=== PATIENT | male | born 1945 | race African-American/Black ===

== ENCOUNTER 2016-08-23 13:41 | Outpatient (RCR) | payer MEDICARE, OTHER ==
--- NOTE | 2016-08-23 22:15 | Hyperbaric Consultation ---
HYPERBARIC OXYGEN CONSULTATION REASON FOR EVALUATION: Diabetic sludge, compromised flap. HISTORY OF PRESENT ILLNESS: This is a 70-year-old male who had amputation for a necrotic toe. The patient underwent an amputation, thereafter appears to have a coffee-ground flap as well as Mittal grade 4 lesion. The patient now presents for hyperbaric oxygen therapy. The patient had been managed medically. Apparently, currently bone scan was done to evaluate for osteomyelitis, which was negative. The patient's care discussed and reviewed with the patient since he has failed medical management. 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 MEDICATIONS: Reviewed. ALLERGIES: Penicillin. SOCIAL HISTORY: Nonsmoker and nondrinker. He lives with roommates. FAMILY HISTORY: Noncontributory. PHYSICAL EXAMINATION: GENERAL: The patient is a well developed male, who is pleasant. VITAL SIGNS: Blood pressure 155/80, pulse 95, respirations 18, and saturation 98%. HEENT: Negative. Tympanic membranes are clear. Nasopharynx is clear. Oropharynx is clear. NECK: Supple. LUNGS: Clear to auscultation. No rhonchi. No wheezing. CARDIOVASCULAR: S1 and S2. Regular rate and rhythm. ABDOMEN: Soft. EXTREMITIES: Notable for mild edema. There is right fifth toe amputation with a large wound 5 x 3 x 1.4 cm. IMPRESSION: 1. Mittal grade 4 lesion, right foot. 2. Compromised flap, right foot. 3. Diabetes. 4. Hypertension. 5. End-stage renal disease status post renal transplant. RECOMMENDATION: The patient appears to be appropriate hyperbaric oxygen candidate and we recommend 30 treatments at 90-minute intervals and two atmospheres with ongoing wound care and reevaluation at that point for possible additional treatments if the wound is responding. The patient is made aware of the plan. He is agreeable. Side effects also discussed and at present, we would certainly recommend proceeding with hyperbaric oxygen as soon as possible to avoid further deterioration of the wound. Mukesh Hair M.D. DR: NANCY JOB#: [id number] CC: LUIS
== END 2016-09-07 | disposition home or self-care (01) ==
LOC: WCC 13:41
DX: L97.519 Non-pressure chronic ulcer of other part of right foot with unspecified severity (principal); E11.49 Type 2 diabetes mellitus with other diabetic neurological complication; G99.0 Autonomic neuropathy in diseases classified elsewhere; T86.821 Skin graft (allograft) (autograft) failure; Z89.421 Acquired absence of other right toe(s); Z88.0 Allergy status to penicillin; Z94.0 Kidney transplant status; I10 Essential (primary) hypertension; I12.0 Hypertensive chronic kidney disease with stage 5 chronic kidney disease or end stage renal disease; E11.22 Type 2 diabetes mellitus with diabetic chronic kidney disease; N18.6 End stage renal disease; G47.30 Sleep apnea, unspecified; Z79.01 Long term (current) use of anticoagulants
CPT/HCPCS: 82962; G0277; G0463

== ENCOUNTER → 2016-09-04 | Outpatient (CLI) | payer MEDICARE ==
[2016-09-04 09:46] LABS: ALBUMIN/GLOBULIN RATIO 0.9 (1.0-2.7); CALCIUM 10.2 mg/dL (8.6-10.2); CREATININE 2.1 mg/dL (0.7-1.2); CRP QUANT 6.4 mg/dL (< 0.5); GLOMERULAR FILTRATION RATE 38.2 mL/min (>60); POTASSIUM 4.4 mEQ/L (3.4-4.9)
[2016-09-04 09:52] LABS: BASOPHILS % (AUTO) 1.1 % (0.0-2.0); EOSINOPHILS % (AUTO) 2.7 % (0.0-3.0); LYMPHOCYTES % (AUTO) 23.2 % (20.0-45.0); MEAN CORPUSCULAR HGB CONC 30.7 G/DL (32.0-36.0); MEAN CORPUSCULAR VOLUME 91 FL (80-99); MEAN PLATELET VOLUME 6.2 FL (6.5-10.1); MONOCYTES % (AUTO) 9.9 % (1.0-10.0); NEUTROPHILS % (AUTO) 63.2 % (45.0-75.0); PLATELET COUNT 306 K/UL (150-450); RED BLOOD COUNT 3.83 M/UL (4.70-6.10); RED CELL DISTRIBUTION WIDTH 13.7 % (11.6-14.8); WHITE BLOOD COUNT 9.3 K/UL (4.8-10.8)
[2016-09-04 11:02] LABS: ERYTHROCYTE SEDIMENTATION RATE 104 MM/HR (0-20)
--- NOTE | 2016-09-04 11:02 | Diagnostic Imaging Report ---
Indications: Right foot and ankle pain Technique: 3 views right foot, 3 views right ankle Findings: Comparison: None Digital ray has been resected through the proximal diaphysis of the fifth metatarsal. Overlying soft tissues are mildly swollen. Wound VAC on overlying skin. No fracture, dislocation, lytic destruction, periosteal reaction, soft tissue gas, or other acute change identified. Scattered arterial mural calcifications are present. Small spurs emanate from the plantar and posterior aspects of calcaneus, anterior margin of the distal tibia, dorsal margin of the talus. No other chronic changes are demonstrated. IMPRESSION: Status post fifth digital ray amputation No other evidence of acute abnormality Multifocal hindfoot enthesophytes Arteriosclerosis
== END | disposition home or self-care (01) ==
LOC: RAD 09:09
DX: M25.571 Pain in right ankle and joints of right foot (principal); I70.90 Unspecified atherosclerosis; M86.9 Osteomyelitis, unspecified; M19.90 Unspecified osteoarthritis, unspecified site
CPT/HCPCS: 36415; 80053; 85025; 85651; 86140

== ENCOUNTER 2016-09-08 17:23 | Outpatient (RCR) | payer MEDICARE, OTHER | END 2016-10-08 | disposition home or self-care (01) | LOC: WCC 17:23 | DX: T86.821 Skin graft (allograft) (autograft) failure (principal); L97.519 Non-pressure chronic ulcer of other part of right foot with unspecified severity; E11.49 Type 2 diabetes mellitus with other diabetic neurological complication; G99.0 Autonomic neuropathy in diseases classified elsewhere; Z89.421 Acquired absence of other right toe(s); Z94.0 Kidney transplant status; I12.0 Hypertensive chronic kidney disease with stage 5 chronic kidney disease or end stage renal disease; E11.22 Type 2 diabetes mellitus with diabetic chronic kidney disease; N18.6 End stage renal disease; Z79.01 Long term (current) use of anticoagulants; Z79.52 Long term (current) use of systemic steroids; Z79.4 Long term (current) use of insulin; Z88.0 Allergy status to penicillin; Z88.8 Allergy status to other drugs, medicaments and biological substances | CPT/HCPCS: 82962; G0277; G0463 ==

== ENCOUNTER 2016-10-09 09:34 | Outpatient (RCR) | payer MEDICARE, OTHER | END 2016-11-08 | disposition home or self-care (01) | LOC: WCC 09:34 | DX: L97.519 Non-pressure chronic ulcer of other part of right foot with unspecified severity (principal); T86.821 Skin graft (allograft) (autograft) failure; E11.49 Type 2 diabetes mellitus with other diabetic neurological complication; G99.0 Autonomic neuropathy in diseases classified elsewhere; Z89.421 Acquired absence of other right toe(s); Z88.0 Allergy status to penicillin; Z88.8 Allergy status to other drugs, medicaments and biological substances; I12.0 Hypertensive chronic kidney disease with stage 5 chronic kidney disease or end stage renal disease; E11.22 Type 2 diabetes mellitus with diabetic chronic kidney disease; N18.6 End stage renal disease; Z94.0 Kidney transplant status; Z79.4 Long term (current) use of insulin; G47.30 Sleep apnea, unspecified; Z79.01 Long term (current) use of anticoagulants; Z79.52 Long term (current) use of systemic steroids | CPT/HCPCS: 82962; G0277; G0463 ==

== ENCOUNTER 2016-11-09 08:30 | Outpatient (RCR) | payer MEDICARE, OTHER | END 2016-12-08 | disposition home or self-care (01) | LOC: WCC 08:30 | DX: L97.519 Non-pressure chronic ulcer of other part of right foot with unspecified severity (principal); T86.821 Skin graft (allograft) (autograft) failure; E11.49 Type 2 diabetes mellitus with other diabetic neurological complication; G99.0 Autonomic neuropathy in diseases classified elsewhere; Z89.421 Acquired absence of other right toe(s); Z88.0 Allergy status to penicillin; Z88.8 Allergy status to other drugs, medicaments and biological substances | CPT/HCPCS: 82962; G0277 ==